=== PATIENT | male | born 1955 | race African-American/Black ===

== ENCOUNTER → 2020-09-14 | Outpatient (CLI) | payer OTHER | LOC: SJCVCIMAG 08-20 09:13 | PROVIDERS: ATTEND Internal Medicine Cardiovascular Disease | DX: I42.8 Other cardiomyopathies (principal); I10 Essential (primary) hypertension; R60.0 Localized edema ==

== ENCOUNTER → 2021-04-14 | Outpatient (CLI) | payer OTHER | LOC: SJCVCIMAG 03-16 15:17 | PROVIDERS: ATTEND Internal Medicine Cardiovascular Disease | DX: I42.9 Cardiomyopathy, unspecified (principal); I49.3 Ventricular premature depolarization; E78.5 Hyperlipidemia, unspecified; I10 Essential (primary) hypertension; Z72.89 Other problems related to lifestyle; Z79.899 Other long term (current) drug therapy ==

== ENCOUNTER 2021-05-04 07:43 | Observation (INO) | payer OTHER ==
[2021-05-04] VITALS (9 sets, daily range): BP systolic 99–126; BP diastolic 60–76
[~2021-05-04] VITALS: Ht 165.1 cm; Wt 72.1 kg
[2021-05-04 08:19] LABS: HEMATOCRIT 39.7 % (42.0-52.0); HEMOGLOBIN 13.6 gm/dL (14.0-18.0); MCHC 34.1 g/dL (28.0-37.0); MCV 108.3 fL (80.0-100.0); RBC 3.67 mil/uL (4.50-6.00); RDW 15.5 % (10.5-14.5); WBC 5.1 thou/uL (4.0-11.0)
[2021-05-04 08:31] LABS: CALCIUM 8.7 mg/dL (8.5-10.1); POTASSIUM 4.1 mmol/L (3.5-5.1)
--- NOTE | 2021-05-04 08:37 | EKG ---
[address] [address] ELECTROCARDIOGRAM REPORT Name: ALEX LORENZO Room #: REG CLI [id number] Admission: 05/04/21 Attend Phys: Josue Garcia MD Discharge: Date of : 59 Report #: [id number] 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
[2021-05-04] MEDS ORDERED: ALLOPURINOL 30300 M1 PO (08:38)
[2021-05-04] MEDS ORDERED: VITAMIN D325 MC2 PO (08:39)
[2021-05-04] MEDS ORDERED: CARVEDILOL25 MG PO (08:39)
[2021-05-04] MEDS ORDERED: LISINOPRIL10 MG PO (08:40)
[2021-05-04] MEDS ORDERED: XARELTO20 MG PO (08:41)
[2021-05-04 09:57] LABS: BE(vivo) 0.5 mmol/L (-2 to +3); HCO3 26.3 mmol/L (22.0-26.0); PCO2 46.6 mmHg (35.0-45.0); pH 7.369 (7.360-7.450); sO2 99.5 % (92.0-98.0)
[2021-05-04 09:59] LABS: BE(vivo) 0.5 mmol/L (-2 to +3); HCO3 26.5 mmol/L (22.0-26.0); PCO2 VENOUS 48.1 mmHg (41.0-51.0); PO2 VENOUS 48.4 mmHg (35.0-45.0)
--- NOTE | 2021-05-04 11:58 | EKG ---
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
--- NOTE | 2021-05-04 12:36 | CATHLAB ---
[facility] [address] [place] [address] INVASIVE PROCEDURE REPORT Name: ALEX LORENZO Room #: 209[facility]P [facility] [id number] Admission: 05/04/21 Attend Phys: Josue Garcia MD Discharge: Date of : 59 Report #: [id number] THIS REPORT FOR: cc: QUOC DIOR MD, OSSAMA MD Park, Jin S. MD ~ APPROVED REPORT Study performed: 05/04/2021 09:00:19 Patient Details Patient Status: Out-Patient Room #: The patient is a 65 year-old male Event Personnel Josue Garcia Registered Nurse Float Pool, Arely Ken RTR Monitor, Randy Florentino RN RN, Ash Joyce RTR Scrub Procedures Performed Art Access - R femoral artery* Dc Access - R femoral vein Right and Left Heart Cath w/or w/o Coronarie [id number] [facility] Place w/wo Plasty Single RCA [id number] Hemostasis with Manual pressure Hemostasis w/ Mynx 06078 Initial Mod Sed Same Phys/QHP Gr5y 199367 50781 Mod Sed Same Phys/QHP Ea 769583 Indication Dyspnea, CardiomyopathyPositive stress test, Chest pain Risk Factors Hypercholesterolemia, Coronary Artery DiseaseHypertension Previous Procedures/Diagnoses Previous CHF Procedure Narrative The Right Groin^ was infiltrated with 1% Lidocaine subcutaneous anesthesia. A PINNACLE 6FR Sheath #[id number] sheath was inserted into the RFA^. Coronary angiography was performed using coronary diagnostic catheters. The right coronary system was accessed and visualized with a JR4 catheter. The left coronary system was accessed and visualized with a JL4 catheter. The left ventricle was accessed and visualized with a ANGLED PIGTAIL catheter. Left ventriculogram was performed in 30 degree projection. Closure device was deployed with a Fr MYNXGRIP 6/7F #[id number]. The patient tolerated the procedure [address] [address] INVASIVE PROCEDURE REPORT Name: ALEX LORENZO GEDDES Room #: 209-P [facility]..#: [id number] Admission: 05/04/21 Attend Phys: Josue Garcia MD Discharge: Date of : 59 Report #: [id number] well and there were no complications associated with the procedure. There was no hematoma. Intraoperative Conscious Sedation Sedation start time: 9:33 Case end Time: 10:47 Fentanyl 50 mcg Versed 1 mg Fluoro Time: 9.50 minutes Dose: DAP 6615.40 cGycm2 855 mGy Contrast Type and Amount: Omnipaque 160 ml Coronary Angiography The patient's coronary anatomy is right dominant. Diagnostic Cath Left Main The left main artery is a large-caliber vessel, patent with no flow-limiting lesions. LAD The LAD is a moderate-sized caliber vessel, traverses the anterior wall and wraps around the apex. There is a moderate stenosis in the proximal segment, 40%. Diagonal 1 This originates from the mid LAD segment, patent with no flow-limiting lesions. Circumflex The left circumflex artery is a moderate-sized caliber vessel with mild diffuse disease in the midsegment, 20%. OM1 This divides into 2 branches, both of which have no flow-limiting lesions. OM2 This is a moderate-sized caliber vessel, patent with no flow-limiting lesions. Right Coronary The RCA is a moderate-sized caliber vessel with a severe stenosis in the midsegment, 80 to 90%. R PDA This is a patent vessel, with no flow-limiting lesions. RPLV This is a patent vessel, with no flow-limiting lesions. Left Ventriculography The left ventricle is mildly dilated in size with Diminished contractility. The left ventricular ejection fraction is estimated to be 35%. Hemodynamics The right atrial mean pressure is 14 mmHg. The right ventricular pressure is 38/8 mmHg. The pulmonary artery pressure is 37/16 mmHg with a mean of 24 mmHg. The mean pulmonary capillary wedge pressure is 15 mmHg. The aortic pressure is 131/76 mmHg with a mean of 75 mmHg. The left ventricular pressure is 130/11 mmHg with a mean of [facility] [address] [place] [address] INVASIVE PROCEDURE REPORT Name: ALEX LORENZO GEDDES Room #: 209-P [facility].R.#: [id number] Admission: 05/04/21 Attend Phys: Josue Garcia MD Discharge: Date of : 59 Report #: [id number] mmHg. The left ventricular end diastolic pressure is 25 mmHg. PaO2 saturation is 82.20 %. Arterial saturation is 98.30 %. The cardiac output using the Joe method is 6.81 L/min. The cardiac index using the Joe method is 3.96 L/min/m2. PCI Technique Lesion Percutaneous coronary intervention was performed on the mid right coronary artery. The lesion stenosis prior to intervention was 90% with ILYA 3 flow. A VISTA 6FR 3DRC #[id number] Guide Catheter was used to engage the ostium. A Luge Wire .014 x 182CM #[id number] Interventional Guidewire was used to cross the lesion. BALLOON DILATION A Balloon catheter Euphora RX 2.25 x 12 #[id number] was inserted and inflated up to 12.00atm for 16seconds. STENT DEPLOYMENT A drug-eluting stent RESOLUTE TYRON RX 2.5 X 18 #[id number] was inserted and inflated up to 18.00atm for 20seconds. POST STENT DEPLOYMENT BALLOON DILATION A Balloon catheter Euphora NC RX 2.75 x 15 #[id number] was inserted and inflated up to 18.00atm for 20seconds. Final angiography reveals 0 % stenosis with ILYA 3 flow. Conclusion 1. PCI performed with placement of a drug-eluting stent into the mid RCA stenosis. 2. There is a moderate stenosis in the proximal LAD. 3. Moderately severe LV dysfunction. 4. Right-sided cardiac pressures as measured. 5. Recommend antiplatelet therapy and aggressive risk factor management. <ELECTRONICALLY SIGNED> By: Josue Garcia MD 05/04/21 1235 1235 1235 Josue Garcia MD /INF
[2021-05-04] MEDS ORDERED: ROSUVASTATIN CA40 MG PO (12:45)
[2021-05-04] MEDS ORDERED: ASA81BEC PO (12:45)
[2021-05-04] MEDS ORDERED: EFFIENT10 MG PO (12:45)
[2021-05-04 15:24] LABS: CHOLESTEROL 278 mg/dL (<200); HDL CHOLESTEROL 14 mg/dL (>40); LDL CHOLESTEROL 190 mg/dL (<100); MAGNESIUM 1.9 mg/dL (1.8-2.4); TC:HDL 19.9 Ratio (Not establshd); TRIGLYCERIDE 374 mg/dL (<150); VLDL 75 mg/dL (<40)
[2021-05-04 15:36] LABS: SERUM ASSESSMENT Slight Lipemia
[2021-05-05 00:09] VITALS: BP 120/60
[2021-05-05 03:07] LABS: HEMATOCRIT 33.4 % (42.0-52.0); MCH 36.3 pg (26.0-34.0); MCHC 33.7 g/dL (28.0-37.0); MCV 107.9 fL (80.0-100.0); RBC 3.1 mil/uL (4.50-6.00); WBC 5.6 thou/uL (4.0-11.0)
[2021-05-05 03:30] VITALS: BP 119/82
[2021-05-05 03:30] LABS: HEMOGLOBIN 11.3 gm/dL (14.0-18.0)
[2021-05-05 03:59] LABS: ALBUMIN 2.1 g/dL (3.4-5.0); CALCIUM 8.1 mg/dL (8.5-10.1); POTASSIUM 3.5 mmol/L (3.5-5.1); TOTAL BILIRUBIN 2.1 mg/dL (0.2-1.0); TOTAL PROTEIN 6.6 g/dL (6.4-8.2)
--- NOTE | 2021-05-05 05:21 | NUR ---
SLEPT PART OF SHIFT. UP AD LEVY TO BATHROOM. DENIES COMPLAINTS. PLANS FOR DISCHARGE THIS AM. CONTINUE TO ASSES.
[2021-05-05 07:45] VITALS: BP 131/74
--- NOTE | 2021-05-05 08:06 | EKG ---
[address] [address] [place] [address] ELECTROCARDIOGRAM REPORT Name: ALEX LORENZO Room #: 209-P [facility] M.R.#: [id number] Admission: 05/04/21 Attend Phys: Josue Garcia MD Discharge: Date of : 59 Report #: [id number] [facility] Test Date: 2021-05-05 Test Time: 07:23:53 Pat Name: ALEX LORENZO Department: Room: 209 Gender: M Casting Technician: BEE : 1955 Requested By: Josue Garcia Order Number: [id number] MD: Harris Lazar Measurements Intervals [place] Rate: 73 P: 71 [place]: 139 QRS: -10 QRSD: 127 T: 41 QT: 369 QTc: 407 Interpretive Statements Sinus rhythm Ventricular premature complex Compared to ECG 05/04/2021 11:06:08 Ventricular premature complex(es) now present Electronically Signed On 05-05-2021 8:06:42 SHED HAND by Harris Lazar [email or web address] <ELECTRONICALLY SIGNED> By: Harris Lazar MD, [facility] 05/05/21805 2 2 Harris Lazar MD, FACC /EPI
[2021-05-05] MEDS ORDERED: PLAVIX 75 MG TA75 MG PO (09:32)
[2021-05-05 10:28] VITALS: BP 131/74
[2021-05-05 11:50] VITALS: BP 104/53
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
== END 2021-05-05 17:31 | disposition home or self-care (01) ==
LOC: CATH 07:43 → 2N 10:07 → CATH 12:24 → 2N 12:25 → CATH 12:49 → 2N 05-05 17:31
PROVIDERS: ADMIT Internal Medicine Cardiovascular Disease; ATTEND Internal Medicine Cardiovascular Disease
DX: I25.110 Atherosclerotic heart disease of native coronary artery with unstable angina pectoris (principal); I42.8 Other cardiomyopathies; I10 Essential (primary) hypertension; Z86.718 Personal history of other venous thrombosis and embolism; Z79.899 Other long term (current) drug therapy
CPT/HCPCS: 10797